=== PATIENT | male | born 1975 | race Hispanic/Latino ===

== ENCOUNTER 2025-07-26 13:08 | Emergency (ER) | payer BC ==
[~2025-07-26] VITALS: Ht 190.5 cm; Wt 108.9 kg
[2025-07-26] MEDS ORDERED: FLUC150T48 PO (15:15)
[2025-07-26] MEDS ORDERED: EPIN0.3P19 IM (15:15)
[2025-07-26] MEDS ORDERED: NYST15OI4 TP (15:15)
--- NOTE | 2025-07-26 15:16 | ERN ---
General Chief Complaint: Penis Problem Stated Complaint: PENIS PROBLEM Time Seen by MD: 13:11 History of Present Illness Initial Comments 49-year-old otherwise healthy male who presents for discomfort to the tip of his penis. He reports has been present for a few days. He has had some swelling of the foreskin as well as some swelling of the glands. No dysuria or problems urinating. No other abscesses. Denies risk for STI. He reports he has a history of balanitis. He went to another facility, and was told to come here for an ultrasound to ensure that there were no abscesses. Allergies: Coded Allergies: No Known Drug Allergies (Unverified Allergy, Unknown, 07/26/25) Home Meds Active Scripts Epinephrine (Epinephrine) 0.3 Mg/0.3 Ml Auto.injct, 1 SYR IM ONCE for 1 Day, #0.6 ML 0 Refills Prov:AIDE DOBBINS DO 07/26/25 Nystatin (Nystatin) 100,000 Unit/Gram Oint, 1 APPL TP QID for 10 Days, #30 GM 0 Refills apply to affected area(s) Prov:AIDE DOBBINS DO 07/26/25 Fluconazole (Fluconazole) 150 Mg Tablet, 1 TAB PO ONCE for 4 Days, #4 TAB 0 Refills Prov:AIDE DOBBINS DO 07/26/25 Past Medical History Past Medical History: No Pertinent History Past Surgical History: Other Surgical History Other: VASECTOMY ROS Dictation CONSTITUTIONAL: No chills, no fever, no weakness, no diaphoresis, no malaise. HEAD/FACE: No signs of trauma. EENT: No eye pain, no blurred vision, no tearing, no double vision, no ear pain, no ear discharge, no nose pain, no nasal congestion, no throat pain, no throat swelling, no mouth pain. RESPIRATORY: No cough, no orthopnea, no SOB, no stridor, no wheezing. CARDIOVASCULAR: No chest pain, no edema, no palpitations, no syncope. GASTROINTESTINAL/ABDOMINAL: No abdominal pain, no constipation, no diarrhea, no nausea, no vomiting. GENITOURINARY: Tip of p.o. in his pain MUSCULOSKELETAL: No back pain, no gout, no joint pain, no joint swelling, no muscle pain, no muscle stiffness, no neck pain. INTEGUMENTARY: No change in color, no change in hair/nails, no dryness, no lesion, no lumps, no rash. NEUROLOGICAL/PSYCH: No anxiety, not depressed, no emotional problem, no he adache, no numbness, no pre-existing deficit, no history of seizures, no tremors, no weakness. HEMATOLOGIC/LYMPHATIC: Not anemic, no history of blood clots, no apparent bleeding, no bruising, glands not swollen. All Systems Negative, Except as Noted. Physical Exam Physical Exam Dictation VITAL SIGNS: Reviewed. GENERAL APPEARANCE: Alert, oriented x3, no acute distress. HEAD AND FACE: Non-traumatic. EYES: PERRL, pink conjunctivas, eyelid no trauma, anterior chamber clear. EARS: Pinnas intact and no signs of trauma or erythema. Ear canals clear and no discharge. TMs no erythema. NOSE: No discharge, no bleeding. OROPHARYNX: Mouth normal, teeth no caries, tongue pink. Pharynx clear, no erythema. Tonsils no exudates, no abscesses noted. Mucous membrane moist. NECK: Supple, non-tender, no thyromegaly, no masses, no JVD, no bruits. BREAST: Deferred. CHEST: No tenderness, no crepitus, no paradoxical movement, no retractions. LUNGS: Clear, well-ventilated, symmetric, no rales, no wheezing, no rhonchi, no stridor, good breath sounds bilaterally. HEART: Regular rate, regular rhythm, no murmur, no gallops. VASCULAR: No peripheral edema. ABDOMEN: Soft, positive bowel sounds, nondistended, no guarding, nontender, no rebound, no masses no hepatomegaly, no splenomegaly, no Martinez's sign, no hernias. RECTAL: Deferred. GENITAL: Deferred. NEUROLOGICAL: Normal speech, gross motor function intact, gross sensory function intact. MUSCULOSKELETAL: Neck nontender, full range of motion, back nontender, full range of motion. EXTREMITIES: Nontender, full range of motion. SKIN: Color pink, dry, no turgor, no rash, no lacerations, no abrasions, no contusions. LYMPHATICS: Deferred. Results Laboratory and Microbiology Lab and Micro Result Laboratory Tests Test 07/26/25 14:02 Group A Streptococcus Rapid negative (NEGATIVE) MDM CC: tip of penis swelling and pain Historian: patient Comorbidities: none Limitations: none Ddx: balanitis, phimosis, abscess/infection, thrombosis, other VSS No labs indicated. Clinically patient has balanitis, it does include a bit of the foreskin. There is some thickening, he was sent here for an ultrasound to ensure there was not an abscess Ultrasound shows flow through all the veins structures all appear intact there is increased vascularity and signs consistent with balanitis, no signs of thrombosis or other obstruction. Patient has been using OTC cream. We will discharge with the nystatin, give him a low potency 1% hydrocortisone steroid cream. We will recommend he continues with the Bactrim. We will also give him an oral dose of fluconazole. We will give him a Urology referral. ED Course Orders Procedure Category Date Status Time Rapid (Group A Strep) LAB 07/26/25 Complete 13:47 Us Soft Tissue Groin US 07/26/25 Resulted 13:47 Vital Signs Date Time Temp Pulse Resp B/P (MAP) Pulse Ox O2 Delivery O2 Flow Rate FiO2 07/26/25 15:26 97.9 75 18 131/98 98 Room Air* 0 21 07/26/25 14:09 72 17 145/97 97 Room Air* 0 21 07/26/25 13:10 97.7 76 16 153/86 98 Room Air DX & DISP Disposition: Discharge Departure Impression: Primary Impression: Balanitis Condition: Stable Scripts Epinephrine (Epinephrine) 0.3 Mg/0.3 Ml Auto.injct 1 SYR IM ONCE for 1 Day, #0.6 ML 0 Refills Prov: AIDE DOBBINS DO 07/26/25 Nystatin (Nystatin) 100,000 Unit/Gram Oint 1 APPL TP QID for 10 Days, #30 GM 0 Refills apply to affected area(s) Prov: AIDE DOBBINS DO 07/26/25 Fluconazole (Fluconazole) 150 Mg Tablet 1 TAB PO ONCE for 4 Days, #4 TAB 0 Refills Prov: AIDE DOBBINS DO 07/26/25 Additional Instructions: Your symptoms are most consistent with balanitis. This is often a fungal infection. The ultrasound shows signs of a mild skin infection, but is otherwise u nremarkable. This is consistent with balanitis. There are no signs of abscess. It is up to you whether you want to continue taking the antibiotic. As we discussed, the abscess appears to be well healing and you may not need any further antibiotics. I have prescribed oral fluconazole. Take one dose today, and one dose tomorrow. If you still have symptoms in 5-7 days, take a 2nd dose. I have given you a prescription for 4 total tabs. I have also prescribed nystatin cream. You can apply this twice daily to the affected area. You can also mix this with the 1% hydrocortisone cream, which is an [id number] anti-inflammatory cream. Wash the glands with warm water. Avoid harsh soaps. Keep the area dry. Avoid any irritants. Wear loose closing. Abstain from sexual activity until resolved. You may need to follow up with the urologist. I have given you a referral. Armin fernandez an appointment as needed. Please return to the emergency department if you have any concerns. Referrals: DIMITRI VERDUGO (PCP) AIDE DOBBINS DO Jul 26, 2025 15:16
[2025-07-26 15:26] VITALS: BP 131/98; PULSE 75; RESP 18; TEMP 97.8; O2SAT 98
--- NOTE | 2025-07-26 15:45 | HMCIMG ---
Exam: Ultrasound penis Technique: Static ventura scale and color images of the penis. History: Balanitis Findings: Subcutaneous edema skin measuring 6 mm. Hypervascular penile glands. The corpus cavernosum and corpus spongiosum are within normal limits. The dorsal vein is patent IMPRESSION: 1. Subcutaneous edema of penile skin measuring 6 mm. 2. Hypervascular penile glands, consistent with balanitis. 3. Normal appearance of corpus cavernosum and corpus spongiosum. 4. Patent dorsal vein. /[place]
== END 2025-07-26 15:24 | disposition home or self-care (01) ==
LOC: EDH 13:08
DX: N48.1 Balanitis (principal); Z79.899 Other long term (current) drug therapy
CPT/HCPCS: 76882; 87880; 99284